=== PATIENT | female | born 1990 | race African-American/Black ===

== ENCOUNTER → 2020-06-24 | Emergency (ER) | payer MEDICAID, OTHER ==
[~2020-06-24] VITALS: Ht 160 cm; Wt 106.0 kg
[~2020-06-24] MED LIST: ANTACID SUSP 30 ML UDC (MYLANTA) PO ONE; FAMO40TA72 PO; LIDOCAINE 2% VISCOUS 15 ML UDC PO ONE; PANT40TA2 PO
[2020-06-24 12:15] VITALS: BP 133/84
--- NOTE | 2020-06-24 13:14 | ED Chest Pain ---
General Chief Complaint: Cardiac/General Problems Stated Complaint: CP X 3 DAYS Nursing Triage Note: patient states three days ago she was moving furnature, states now when she moves or raises arms over her head she has chest pain, tightness. states also hx of reflux Nursing Sepsis Screen: No Definite Risk Source: patient Exam Limitations: no limitations History of Present Illness Date Seen by Provider: June 24, 2020 Time Seen by Provider: 13:13 Initial Comments To ER with chest pain for 3 days history of GERD and is certain this is GERD aga in. She does not have any medication to take for this at home and is not sure what to take. Denies fevers cough shortness of breath. Timing/Duration: 2-3 days Severity/Quality: moderate Location: central Radiation: no radiation Activities at Onset: none Allergies and Home Medications Allergies Coded Allergies: No Known Drug Allergies (Unverified , 06/24/20) Home Medications Famotidine 40 Mg Tablet, 40 MG PO DAILY . Prescribed by: LIEN DAWSON on 06/24/201413 Last Action: New Order Pantoprazole Sodium 40 Mg Tablet.dr, 40 MG PO DAILY . Prescribed by: LIEN DAWSON on 06/24/201413 Last Action: New Order Patient Home Medication List Home Medication List Reviewed: Yes Review of Systems Review of Systems Constitutional: see HPI; No chills, No fever EENTM: No Symptoms Reported Respiratory: No Symptoms Reported Cardiovascular: See HPI, Chest Pain Gastrointestinal: No Symptoms Reported Genitourinary: No Symptoms Reported Musculoskeletal: no symptoms reported Skin: no symptoms reported Psychiatric/Neurological: No Symptoms Reported Endocrine: No Symptoms Reported Hematologic/Lymphatic: No Symptoms Reported Past Ravfdta-Tphkjb-Gvnflz Hx Patient Social History Alcohol Use: Regular Use Smoking Status: Never a Smoker 2nd Hand Smoke Exposure: No Recent Infectious Disease Expo: Yes Physical Exam Vital Signs Vital Signs - First Documented 06/24/20 12:15 Temp 37.0 Pulse 102 Resp 18 B/P (MAP) 133/84 (100) Pulse Ox 100 O2 Delivery Room Air Capillary Refill : Less Than 3 Seconds Height, Weight, BMI Height: '" Weight: lbs. oz. kg; 41.00 BMI Method: General Appearance: No Apparent Distress, WD/WN Neck: Full Range of Motion, Normal Inspection Respiratory: No Accessory Muscle Use, No Respiratory Distress Cardiovascular: Regular Rate, Rhythm, Normal Peripheral Pulses Gastrointestinal: Non Tender, Soft Extremity: Normal Capillary Refill Neurologic/Psychiatric: Alert, Oriented x3 Skin: Normal Color, Warm/Dry Progress/Results/Core Measures Results/Orders My Orders Orders - LIEN DAWSON APRN Antacid Suspension (Mylanta Suspension (06/24/20 12:30) Lidocaine 2% Viscous 15 Ml (Xylocaine Vi (06/24/20 12:30) Medications Given in ED Current Medications Medications Dose Ordered Sig/Alesha Route Start Time Stop Time Status Last Admin Dose Admin Al Hydrox/Mg Hydrox/Simethicone 30 ml ONCE ONCE PO 06/24/20 12:30 06/24/20 12:31 DC 06/24/20 13:17 30 ML Lidocaine HCl 15 ml ONCE ONCE PO 06/24/20 12:30 06/24/20 12:31 DC 06/24/20 13:17 15 ML Vital Signs/I&O 06/24/20 12:15 Temp 37.0 Pulse 102 Resp 18 B/P (MAP) 133/84 (100) Pulse Ox 100 O2 Delivery Room Air Blood Pressure Mean: 100 Departure Impression Primary Impression: Gastroesophageal reflux disease Disposition: 01 HOME, SELF-CARE Condition: Stable Departure-Patient Inst. Decision time for Depature: 13:14 Referrals: NO,LOCAL PHYSICIAN (PCP/Family) Primary Care Physician Patient Instructions: Acid Reflux and GERD In Adolescents (DC) Scripts Famotidine (Pepcid) 40 Mg Tablet 40 MG PO DAILY, #20 TAB . Prov: LIEN DAWSON APRN 06/24/20 Pantoprazole Sodium (Protonix) 40 Mg Tablet.dr 40 MG PO DAILY, #20 TAB . Prov: LIEN DAWSON APRN 06/24/20 LIEN DAWSON APRN June 24, 2020 13:14
== END ==
LOC: ER 12:03
DX: K21.9 Gastro-esophageal reflux disease without esophagitis (principal)
CPT/HCPCS: 99283

== ENCOUNTER 2020-11-24 13:31 | Emergency (ER) | payer MEDICAID ==
[~2020-11-24] VITALS: Ht 106 cm; Wt 104.0 kg
[~2020-11-24 13:31] MED LIST changes: -ANTACID SUSP 30 ML UDC (MYLANTA) PO ONE; -LIDOCAINE 2% VISCOUS 15 ML UDC PO ONE
--- NOTE | 2020-11-24 14:55 | ED General ---
General Chief Complaint: Dizziness/Syncope Stated Complaint: DIZZINESS/WEAKNESS Nursing Triage Note: PT CO OF DIZZINESS, PT STATES FEELS ANEMIC STATES HAS HAD TO HAVE BLOOD IN PAST D/T HEAVY MENSES. Source of Information: Patient Exam Limitations: No Limitations (LIEN DAWSON APRN) History of Present Illness Date Seen by Provider: Nov 24, 2020 Time Seen by Provider: 14:20 Initial Comments To ER with dizziness, exertional fatigue which she states is out of proportion to what would be normal. She has a history of anemia which she believes is from heavy menstrual cycles. She states that her menses last longer than normal and she bleeds heavier than normal. She had a work-up done while she lived in [place] but has not had anything done since then. She used to be on oral iron supplement but not anymore. She denies any pain or dark tarry stools. Timing/Duration: 1-2 Days Severity: Moderate Associated Systoms: Denies Symptoms (LIEN DAWSON APRN) Allergies and Home Medications Allergies Coded Allergies: No Known Drug Allergies (Unverified , 06/24/20) Patient Home Medication List Home Medication List Reviewed: Yes (LIEN DAWSON APRN) Famotidine (Pepcid) 40 Mg Tablet, 40 MG PO DAILY Prescribed by: LIEN DAWSON on 06/24/20 1414 Ferrous Sulfate (Feosol) 325 Mg Tablet, 325 MG PO DAILY Prescribed by: LIEN DAWSON on 11/24/20 151 Norgestimate-Ethinyl Estradiol (Sprintec 28 Day Tablet) 1 Each Tablet, 1 EACH PO DAILY Prescribed by: LIEN DAWSON on 11/24/20 151 Pantoprazole Sodium (Protonix) 40 Mg Tablet.dr, 40 MG PO DAILY Prescribed by: LIEN DAWSON on 06/24/20 1414 Review of Systems Review of Systems Constitutional: see HPI EENTM: see HPI Respiratory: see HPI, dyspnea on exertion Cardiovascular: no symptoms reported Genitourinary: no symptoms reported Musculoskeletal: no symptoms reported Skin: no symptoms reported Psychiatric/Neurological: No Symptoms Reported Hematologic/Lymphatic: No Symptoms Reported (LIEN DAWSON APRN) Past Npfvaov-Orxyal-Rnlyfm Hx Patient Social History Tobacco Use?: No Substance use?: No Alcohol Use?: Yes Alcohol type: Hard Liquor Alcohol Frequency: Couple times a week Pt feels they are or have been: No (LIEN DAWSON APRN) Physical Exam Vital Signs Vital Signs - First Documented 11/24/20 13:34 Temp 36.8 Pulse 101 Resp 18 B/P (MAP) 118/78 (91) Pulse Ox 100 (KUSUM RANDALL MD) Vital Signs Capillary Refill : Less Than 3 Seconds (LIEN DAWSON APRN) Height, Weight, BMI Height: '" Weight: lbs. oz. kg; 92.00 BMI Method: General Appearance: No Apparent Distress, WD/WN, Other (Alert and oriented no distress) Eyes: Bilateral Eye Normal Inspection, Bilateral Eye PERRL, Bilateral Eye EOMI (Conjunctival pallor) Respiratory: No Accessory Muscle Use, No Respiratory Distress Cardiovascular: Regular Rate, Rhythm, Normal Peripheral Pulses Gastrointestinal: Normal Bowel Sounds, Non Tender, Soft Extremity: Normal Capillary Refill, Normal Inspection Neurologic/Psychiatric: Alert, Oriented x3 Skin: Normal Color, Warm/Dry (LIEN DAWSON APRN) Progress/Results/Core Measures Suspected Sepsis SIRS Temperature: Pulse: 101 Respiratory Rate: 18 Laboratory Tests 11/24/20 14:40: White Blood Count 8.2 Blood Pressure 118 /78 Mean: 91 Laboratory Tests 11/24/20 14:40: Creatinine 0.71, Platelet Count 57L, Total Bilirubin 0.3 (LIEN DAWSON APRN) Results/Orders Lab Results Laboratory Tests Test 11/24/20 14:40 Range/Units White Blood Count 8.2 4.3-11.0 10^3/uL Red Blood Count 2.68 L 3.80-5.11 10^6/uL Hemoglobin 4.4 *L 11.5-16.0 g/dL Hematocrit 17 *L 35-52 % Mean Corpuscular Volume 63 L 80-99 fL Mean Corpuscular Hemoglobin 16 L 25-34 pg Mean Corpuscular Hemoglobin Concent 26 L 32-36 g/dL Red Cell Distribution Width 32.4 H 10.0-14.5 % Platelet Count 57 L 130-400 10^3/uL Mean Platelet Volume 9.0-12.2 fL Immature Granulocyte % (Auto) 1 % Neutrophils (%) (Auto) 69 42-75 % Lymphocytes (%) (Auto) 22 12-44 % Monocytes (%) (Auto) 7 0-12 % Eosinophils (%) (Auto) 1 0-10 % Basophils (%) (Auto) 1 0-10 % Neutrophils # (Auto) 5.7 1.8-7.8 10^3/uL Lymphocytes # (Auto) 1.8 1.0-4.0 10^3/uL Monocytes # (Auto) 0.6 0.0-1.0 10^3/uL Eosinophils # (Auto) 0.1 0.0-0.3 10^3/uL Basophils # (Auto) 0.1 0.0-0.1 10^3/uL Immature Granulocyte # (Auto) 0.0 0.0-0.1 10^3/uL Percent Immature Platelet Fraction 4.2 0.0-7.6 % Sodium Level 138 135-145 MMOL/L Potassium Level 3.8 3.6-5.0 MMOL/L Chloride Level 106 98-107 MMOL/L Carbon Dioxide Level 19 L 21-32 MMOL/L Anion Gap 13 5-14 MMOL/L Blood Urea Nitrogen 9 7-18 MG/DL Creatinine 0.71 0.60-1.30 MG/DL Estimat Glomerular Filtration Rate 118 BUN/Creatinine Ratio 13 Glucose Level 98 70-105 MG/DL Calcium Level 10.2 H 8.5-10.1 MG/DL Corrected Calcium 10.2 H 8.5-10.1 MG/DL Total Bilirubin 0.3 0.1-1.0 MG/DL Aspartate Amino Transf (AST/SGOT) 16 5-34 U/L Alanine Aminotransferase (ALT/SGPT) 21 0-55 U/L Alkaline Phosphatase 89 40-136 U/L Total Protein 7.9 6.4-8.2 GM/DL Albumin 4.0 3.2-4.5 GM/DL Smear Scan YES (KUSUM RANDALL MD) Vital Signs/I&O 11/24/20 11/24/20 13:34 15:40 Temp 36.8 36.8 Pulse 101 101 Resp 18 18 B/P (MAP) 118/78 (91) 118/78 Pulse Ox 100 100 (KUSUM RANDALL MD) Vital Signs/I&O Capillary Refill : Less Than 3 Seconds (LIEN DAWSON APRN) Blood Pressure Mean: 91 Departure Communication (Admissions) 1514-hemoglobin 4.4. We will give her 3 units of packed red cells as an outpatient. She is without hypotension or tachycardia and is stable to do this outpatient. I discussed any prior history of stroke or DVT/PE. She has none of these so I will proceed with putting her on control pill as well as an oral iron supplement. We will have her follow-up with [facility]. (LIEN DAWSON APRN) Impression Primary Impression: Symptomatic anemia Additional Impression: Heavy menses Disposition: HOME, SELF-CARE Condition: Stable Departure-Patient Inst. Decision time for Depature: 15:15 (LIEN DAWSON APRN) Referrals: OBIE SAMANIEGO BETHANY N MD GAULT, HOLLY R MD NO,LOCAL PHYSICIAN (PCP) Primary Care Physician Patient Instructions: Anemia Caused by Low Iron Add. Discharge Instructions: 1. Take the iron supplements and the control tablet as directed. Follow- up with your regular doctor next week for recheck. Return to ER for any wor sening. All discharge instructions reviewed with patient and/or family. Voiced understanding. Scripts Ferrous Sulfate (Feosol) 325 Mg Tablet 325 MG PO DAILY, #30 TAB Prov: LIEN DAWSON APRN 11/24/20 Norgestimate-Ethinyl Estradiol (Sprintec 28 Day Tablet) 1 Each Tablet 1 EACH PO DAILY, #1 PACKET 1 Refill Prov: LIEN DAWSON APRN 11/24/20 ATTENDING PHYSICIAN NOTE: I was physically present as attending physician in the emergency department during the care of this patient, but I was not directly involved in the decision making or delivery of care for this patient. (KUSUM RANDALL MD) LIEN DAWSON APRN Nov 24, 2020 14:55 KUSUM RANDALL MD Nov 24, 2020 18:33
[2020-11-24 15:03] LABS: POTASSIUM 3.8 MMOL/L (3.6-5.0)
[2020-11-24 15:04] LABS: CALCIUM 10.2 MG/DL (8.5-10.1)
[2020-11-24 15:05] LABS: TOTAL PROTEIN 7.9 GM/DL (6.4-8.2)
[2020-11-24 15:07] LABS: BILIRUBIN,TOTAL 0.3 MG/DL (0.1-1.0)
[2020-11-24 15:08] LABS: BASOPHILS # (AUTO) 0.1 10^3/uL (0.0-0.1); BASOPHILS % (AUTO) 1 % (0-10); EOSINOPHILS # (AUTO) 0.1 10^3/uL (0.0-0.3); EOSINOPHILS % (AUTO) 1 % (0-10); LYMPHOCYTES # (AUTO) 1.8 10^3/uL (1.0-4.0); LYMPHOCYTES % (AUTO) 22 % (12-44); MEAN CORPUSCULAR HEMOGLOBIN 16 pg (25-34); MEAN CORPUSCULAR HGB CONC 26 g/dL (32-36); MEAN CORPUSCULAR VOLUME 63 fL (80-99); MONOCYTES # (AUTO) 0.6 10^3/uL (0.0-1.0); MONOCYTES % (AUTO) 7 % (0-12); NEUTROPHILS # (AUTO) 5.7 10^3/uL (1.8-7.8); NEUTROPHILS % (AUTO) 69 % (42-75); PLATELET COUNT 57 10^3/uL (130-400); WHITE BLOOD COUNT 8.2 10^3/uL (4.3-11.0)
[2020-11-24 15:09] LABS: CREATININE SERUM 0.71 MG/DL (0.60-1.30)
[2020-11-24 15:11] LABS: HEMATOCRIT 17 % (35-52); HEMOGLOBIN 4.4 g/dL (11.5-16.0)
[2020-11-24 15:13] LABS: SMEAR SCAN COMMENT YES
[2020-11-24] MEDS ORDERED: FERR-65 PO (15:17)
[2020-11-24] MEDS ORDERED: NORG1TAB14 PO (15:17)
[2020-11-24 15:40] VITALS: BP 118/78
== END 2020-11-24 15:41 | disposition home or self-care (01) ==
LOC: EDUNIT# 13:31 → ER 13:33
DX: D64.9 Anemia, unspecified (principal); N92.4 Excessive bleeding in the premenopausal period
CPT/HCPCS: 80053; 82728; 83540; 83550; 85025; 86850; 86900; 86901; 86920; 99284; P9016; 36415

== ENCOUNTER 2020-11-24 15:38 | Outpatient (CLI) | payer MEDICAID ==
[~2020-11-24] VITALS: Ht 160 cm; Wt 99.8 kg
[~2020-11-24 15:38] MED LIST changes: +FERR-65 PO; +NORG1TAB14 PO
[2020-11-24 16:22] VITALS: BP 129/60
[2020-11-24] MEDS ORDERED: NS IV 500 ML 500 ML IV SCH (16:30)
[2020-11-24 17:10] VITALS: BP 118/60
[2020-11-25 02:45] VITALS: BP 117/69
== END 2020-11-25 02:47 ==
LOC: 4THo 15:38 → 4TH 18:11 → 4THo 11-25 02:47
PROVIDERS: ATTEND Nurse Practitioner Family
DX: D64.9 Anemia, unspecified (principal)
CPT/HCPCS: 36430